=== PATIENT | female | born 1955 | race Caucasian/White ===

== ENCOUNTER 2024-03-28 03:44 | Day surgery (SDC) | payer OTHER ==
[2024-03-21 15:16] VITALS: BMI 29.2
[2024-03-28] MEDS ORDERED: ACETAMINOPHEN INJECTION 100 ML IVPB ONE (09:12)
[2024-03-28] MEDS ORDERED: FENTANYL CITRATE/PF 50 MCG/ML VIAL ONE ×4 (09:14→11:33)
[2024-03-28] MEDS ORDERED: PROPOFOL 20 ML ONE (09:14)
[2024-03-28] MEDS ORDERED: oxyCODONE HCL 5 MG TABLET PO PRN ×2 (09:31→10:11)
[2024-03-28] MEDS ORDERED: ONDANSETRON 4 MG/2 ML VIAL IVPUSH PRN ×2 (09:31→10:11)
[2024-03-28] MEDS ORDERED: LACTATED RINGERS SOLUTION 1,000 ML IV SCH (09:45)
[2024-03-28] MEDS ORDERED: IBUPROFEN 600 MG TABLET (FP) PO PRN (10:11)
[2024-03-28] MEDS ORDERED: IBUPROFEN 800 MG/8 ML IJ IVPB PRN (10:11)
[2024-03-28] MEDS ORDERED: ELECTROLYTE-148 SOLN 1,000 ML IV SCH (10:15)
[2024-03-28] MEDS ORDERED: DEXAMETHASONE SOD PHOSPHATE 4 MG/1 ML VIAL ONE (10:17)
[2024-03-28 13:12] VITALS: RESP 18
[2024-03-28 13:40] VITALS: BP 109/65; PULSE 73; TEMP 96.9
== END 2024-03-28 14:10 | disposition home or self-care (01) ==
LOC: JASU-SURG 03:44
PROVIDERS: ATTEND Obstetrics & Gynecology
PROC: 0UB98ZZ Excision of Uterus, Via Natural or Artificial Opening Endoscopic (ICD-10-PCS; principal; 2024-03-28 11:30)
DX: N84.0 Polyp of corpus uteri (principal)
CPT/HCPCS: 86850; 86900; 86901; 88305-TC; 94760; J0131